=== PATIENT | male | born 1975 | race Caucasian/White ===

== ENCOUNTER 2016-10-10 07:03 | Emergency (ER) | payer OTHER ==
[2016-10-10] MEDS ORDERED: Ondansetron ODT TAB* 4 MG PO ONE (07:51)
[2016-10-10] MEDS ORDERED: LORazepam TAB(*) 1 MG PO ONE (07:51)
--- NOTE | 2016-10-10 08:01 | ED ---
Substance Abuse/Use - HPI Summary HPI Summary: Patient presents with muscle cramps and sweating after last injecting heroin approximately 9 hours ago. He took 1/2 a suboxone he got off the street this morning to help with the withdrawal symptoms he had already begun to have. He uses heroin regularly. He denies CP, SOB, vomiting, or diarrhea. He does feel nauseous and his feet have felt like he's "walking on needles" for at least 2 weeks. He denies calf pain, swelling or SOB. - History Of Current Complaint Chief Complaint: EDSubstanceAbuse Stated Complaint: OVERDOSE Time Seen by Provider: 10/10/16 07:46 Hx Obtained From: Patient Onset/Duration of Drug/ETOH Abuse: Hours States Increased Use Since: His mother two month ago. Overdose Characteristics: IV Timing Of Abuse: Daily Severity Initially: Severe Severity Currently: Moderate Aggravating Factor(s): Nothing Alleviating Factor(s): Nothing Associated Signs And Symptoms: Diaphoretic, Agitated, Nausea Related Hx: Drug/Alcohol Last Used @ - 2300 on 10/09/16 - Allergies/Home Medications Allergies/Adverse Reactions: Allergies Allergy/AdvReac Type Severity Reaction Status Date / Time No Known Allergies Allergy Verified 10/10/16 07:06 PMH/Surg Hx/FS Hx/Imm Hx Endocrine/Hematology History: Denies: Hx Diabetes, Hx Thyroid Disease Cardiovascular History: Reports: Hx Hypertension Respiratory History: Denies: Hx Asthma, Hx Chronic Obstructive Pulmonary Disease (COPD) GI History: Denies: Hx Ulcer Psychiatric History: Reports: Hx Inpatient Treatment - [facility] 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 Denies: Hx Clostridium Difficile, Hx Hepatitis, Hx Human Immunodeficiency Virus (HIV), Hx Shingles, Hx Tuberculosis, History Other Infectious Disease, Traveled Outside the [place] in Last 30 Days - Family History Known Family History: Positive: None Family History: NON CONTRIBUTORY - Social History Occupation: Unemployed Lives: With Family Alcohol Use: Occasionally Alcohol Amount: not drinking now Substance Use Type: Reports: Heroin Substance Use Comment - Amount & Last Used: on suboxone now Smoking Status (MU): Current Every Day Smoker Type: Cigarettes Amount Used/How Often: 1/2 ppd Cessation Counseling: Patient Advised to Stop Review of Systems Positive: Skin Diaphoresis Negative: Chest Pain Negative: Shortness Of Breath Positive: Nausea. Negative: Vomiting, Diarrhea Negative: Headache, Weakness, Paresthesia All Other Systems Reviewed And Are Negative: Yes Physical Exam - Summary Physical Exam Summary: Vital signs: none recorded General appearance: well appearing [], NAD, normal development, good nutrition , normal body habitus, well groomed HEENT: normocephalic, atraumatic, ears and nose without masses or lesions conjunctivae normal Neck: symmetric without masses or tracheal deviation, no thyromegaly Chest: normal respiratory effort Cardiovascular: good color, warmth, and capillary refill in extremities, no peripheral edema Skin: no visible rashes, lesions, or ulcers Neurological/Psychiatric: good fine motor coordination, sensation intact to light touch distally, cranial nerves II-XII grossly intact, appropriate judgment and insight, oriented to time, place and person, normal mood and affect Triage Information Reviewed: Yes Vital Signs On Initial Exam: Initial Vitals Temp Pulse Resp BP Pulse Ox 98.3 F 67 18 151/97 100 10/10/16 07:11 10/10/16 07:11 10/10/16 07:11 10/10/16 07:11 10/10/16 07:11 Vital Signs Reviewed: Yes Appearance: Positive: Well-Appearing, No Pain Distress, Obese Skin: Positive: Warm, Skin Color Reflects Adequate Perfusion, Diaphoretic Head/Face: Positive: Normal Head/Face Inspection Eyes: Positive: EOMI, CASTILLO, Conjunctiva Clear ENT: Positive: Hearing grossly normal, Pharynx normal Neck: Positive: Supple, Nontender, No Lymphadenopathy Respiratory/Lung Sounds: Positive: Clear to Auscultation, Breath Sounds Present Cardiovascular: Positive: RRR Abdomen Description: Positive: Soft Bowel Sounds: Positive: Present Musculoskeletal: Negative: Sandra Sign Left, Sandra Sign Right, Edema Left, Edema Right Neurological: Positive: Sensory/Motor Intact, Alert, Oriented to Person Place, Time, NV Bundle Intact Distally Psychiatric: Positive: Anxious AVPU Assessment: Alert Diagnostics - Vital Signs Vital Signs Temp Pulse Resp BP Pulse Ox 10/10/16 07:11 98.3 F 67 18 151/97 100 - Laboratory Lab Statement: Any lab studies that have been ordered have been reviewed, and results considered in the medical decision making process. Re-Evaluation - Re-Evaluation First Eval Re-Evaluation Time: 10:00 Change: Improved Comment: Patient is resting comfortably. Course/Dx - Course Course Of Treatment: Patient is not interested in stopping the use of heroin. He will be discharged with information about [facility] for evaluation and information for obtaining a PCP. - Diagnoses Differential Diagnosis/HQI/PQRI: Positive: Acute Psychosis, Anxiety, Delirium Tremens, Drug Abuse, Drug Withdrawal, Metabolic Disorder Provider Diagnoses: Drug withdrawal - Physician Notifications Discussed Care Of Patient With: Dr. Yeh, ED attending. Discharge - Discharge Plan Condition: Stable Disposition: HOME Patient Education Materials: Opioid Withdrawal (ED) Referrals: Rory Nguyen MD [Primary Care Provider] - Additional Instructions: Since you have a relationship with [facility] please call them or return to their office to discuss your addiction and possible help. Call your primary care provider to discuss your addiction as well. Return to the emergency department if your symptoms worsen.
[2016-10-10] MEDS ORDERED: Buprenorphine/Naloxone 8-2 MG SL TAB* 1 TAB PO ONE (08:15)
[2016-10-10 11:02] VITALS: BP 141/91
== END 2016-10-10 10:30 | disposition home or self-care (01) ==
LOC: ED 07:03
DX: F11.23 Opioid dependence with withdrawal (principal); F17.210 Nicotine dependence, cigarettes, uncomplicated; I10 Essential (primary) hypertension
CPT/HCPCS: 93005; 99282; A9270-GY